=== PATIENT | male | born 1930 | race Caucasian/White ===

== ENCOUNTER → 2017-08-31 | Day surgery (SDC) | payer MEDICARE, MEDICAID ==
[~2017-08-31] VITALS: Ht 157.5 cm; Wt 62.6 kg
[2017-08-31] VITALS (11 sets, daily range): BP systolic 149–170; BP diastolic 73–97
[~2017-08-31] MED LIST: CARV12.545 PO; FENTANYL CITRATE/PF 50MCG/ML 2ML VIAL IV ONE; FENTANYL CITRATE/PF 50MCG/ML 2ML VIAL ONE; LIDOCAINE HCL/PF 1% 10 MG/ML 30ML VIAL ONE; LISI-604 PO; LOSA100T14 PO; MEMA7CAP PO; METF500T6 PO; SODIUM BICARBONATE 4% (2.4MEQ) 5ML VIAL IV ONE
== END | disposition home or self-care (01) ==
LOC: RAD 09:15
PROVIDERS: ATTEND Internal Medicine
DX: C34.92 Malignant neoplasm of unspecified part of left bronchus or lung (principal); I10 Essential (primary) hypertension; E11.9 Type 2 diabetes mellitus without complications; E78.00 Pure hypercholesterolemia, unspecified; R63.4 Abnormal weight loss; I42.9 Cardiomyopathy, unspecified; Z95.0 Presence of cardiac pacemaker; Z79.899 Other long term (current) drug therapy
CPT/HCPCS: 32405; 71045; 77012; 82962; 88304; 88305; J3010; J3490; 99152; 99153; J7050

== ENCOUNTER 2018-08-23 11:36 | Inpatient (IN) | payer MEDICARE, MEDICAID ==
[~2018-08-23] VITALS: Ht 170.2 cm; Wt 66.7 kg
[~2018-08-23 11:36] MED LIST changes: -CARV12.545 PO; -FENTANYL CITRATE/PF 50MCG/ML 2ML VIAL IV ONE; -FENTANYL CITRATE/PF 50MCG/ML 2ML VIAL ONE; -LIDOCAINE HCL/PF 1% 10 MG/ML 30ML VIAL ONE; -LISI-604 PO; -LOSA100T14 PO; -MEMA7CAP PO; +METF-414 PO; -METF500T6 PO; +RIVA20TA MT; -SODIUM BICARBONATE 4% (2.4MEQ) 5ML VIAL IV ONE
[2018-08-23] MEDS ORDERED: SODIUM CHLORIDE 0.9% 1000ML BAG (SEPSIS BOLUS) IV ONE (12:45)
[2018-08-23] MEDS ORDERED: PIPERACILLIN/TAZ 3.375G PREMIX 50 ML IV ONE (12:45)
[2018-08-23] MEDS ORDERED: VANCOMYCIN 1 G PREMIX 200 ML IV ONE (12:45)
[2018-08-23 13:04] LABS: BASOPHILS % 0.2 % (0.0-2.0); EOSINOPHILS % 1.2 % (0.0-5.0); HEMATOCRIT. 28.2 % (42.0-52.0); HEMOGLOBIN. 9.6 g/dL (14.0-18.0); LYMPHOCYTES % 22.3 % (20.0-50.0); MEAN CORPUSCULAR HEMOGLOBIN 28.4 pg (28.0-32.0); MEAN CORPUSCULAR VOLUME 83.6 fL (80.0-94.0); MEAN PLATELET VOLUME 6.9 fl (7.4-10.4); NEUTROPHILS % 67.3 % (40.0-76.0); PLATELET 323 x1000/uL (130-400); RED BLOOD CELL COUNT 3.38 mill/uL (4.7-6.1); RED CELL DISTRIBUTION WIDTH 15.3 % (11.6-14.6)
[2018-08-23 13:10] LABS: CHLORIDE 103 mEq/L (98-107); INR 1.2; PROTHROMBIN TIME 12.6 sec (9.6-11.0)
[2018-08-23 14:45] LABS: CLARITY URINE CLEAR (CLEAR); COLOR URINE YELLOW (YELLOW); KETONES URINE NEGATIVE (NEGATIVE); LEUKOCYTE ESTERASE URINE NEGATIVE (NEGATIVE); NITRITE URINE NEGATIVE (NEGATIVE); OCCULT BLOOD URINE NEGATIVE (NEGATIVE); PROTEIN URINE NEGATIVE (NEGATIVE); UROBILINOGEN URINE 0.2 E.U./dL (0.2-1.0)
[2018-08-23] MEDS ORDERED: HYDROCODONE/ACETAMINOPHEN 5/325MG TABLET PO PRN (16:00)
[2018-08-23] MEDS ORDERED: IPRATROPIUM/ALBUTEROL 0.5-3(2.5)MG/3ML NEB INH PRN (16:00)
[2018-08-23] MEDS ORDERED: ONDANSETRON HCL 4MG/2ML INJ IV PRN (16:00)
[2018-08-23] MEDS ORDERED: ACETAMINOPHEN 325MG TABLET PO PRN (16:00)
[2018-08-23] MEDS ORDERED: CLONIDINE 0.1MG TABLET PO PRN (16:00)
[2018-08-23 23:32] VITALS: BP 158/74
[2018-08-24] VITALS: BP 158/74
[2018-08-24] MEDS: SODIUM CHLORIDE 0.45% 1,000 ML IV SCH ×2 (02:29→23:09)
[2018-08-24] MEDS ORDERED: DEXTROSE 50% WATER 50ML SYRINGE IV PRN (03:15)
[2018-08-24 04:00] VITALS: BP 132/71
[2018-08-24] MEDS: BLOOD SUGAR DIAGNOSTIC STRIP TEST SCH ×3 (06:20→21:00)
[2018-08-24 06:22] LABS: CHLORIDE 105 mEq/L (98-107)
[2018-08-24 06:27] LABS: BASOPHILS % 0.3 % (0.0-2.0); EOSINOPHILS % 2.2 % (0.0-5.0); HEMATOCRIT. 28.6 % (42.0-52.0); HEMOGLOBIN. 9.8 g/dL (14.0-18.0); LYMPHOCYTES % 23.9 % (20.0-50.0); MEAN CORPUSCULAR HEMOGLOBIN 28.4 pg (28.0-32.0); MEAN CORPUSCULAR VOLUME 82.8 fL (80.0-94.0); MEAN PLATELET VOLUME 7.2 fl (7.4-10.4); MONOCYTES % 8.8 % (2.0-8.0); NEUTROPHILS % 64.8 % (40.0-76.0); PLATELET 302 x1000/uL (130-400); RED BLOOD CELL COUNT 3.45 mill/uL (4.7-6.1); RED CELL DISTRIBUTION WIDTH 15.4 % (11.6-14.6)
[2018-08-24 06:35] LABS: LDL CHOLESTEROL 60 mg/dL (5-100)
[2018-08-24 06:37] LABS: HDL CHOLESTEROL 47 mg/dL (40-59); T4 FREE 1.14 ng/dL (0.76-1.46)
[2018-08-24] MEDS: INSULIN LISPRO 100 UNITS/ML SUBCUT SCH ×2 (07:40→21:00)
[2018-08-24 08:00] VITALS: BP 107/68
[2018-08-24] MEDS: ENOXAPARIN 40MG/0.4ML SYR SUBCUT SCH (09:37)
[2018-08-24 12:00] VITALS: BP 115/57
[2018-08-24] MEDS ORDERED: IOHEXOL-300 100 ML BOTTLE ONE (14:11)
[2018-08-24 16:00] VITALS: BP 117/56
[2018-08-24 20:00] VITALS: BP 106/57
[2018-08-25] VITALS: BP 144/65
[2018-08-25 04:00] VITALS: BP 118/70
[2018-08-25 05:59] LABS: CHLORIDE 102 mEq/L (98-107)
[2018-08-25 06:29] LABS: HEMATOCRIT 28.1 % (42.0-52.0); HEMOGLOBIN 9.7 g/dL (14.0-18.0); MEAN CORPUSCULAR HEMOGLOBIN 28.4 pg (28.0-32.0); MEAN CORPUSCULAR VOLUME 82.4 fL (80.0-94.0); PLATELET 317 x1000/uL (130-400); RED BLOOD CELL COUNT 3.41 mill/uL (4.7-6.1); RED CELL DISTRIBUTION WIDTH 15.5 % (11.6-14.6)
[2018-08-25] MEDS: BLOOD SUGAR DIAGNOSTIC STRIP TEST SCH ×4 (06:45→21:24)
[2018-08-25] MEDS: INSULIN LISPRO 100 UNITS/ML SUBCUT SCH ×3 (06:47→21:00)
[2018-08-25 08:00] VITALS: BP 110/62
[2018-08-25 12:00] VITALS: BP 129/70
[2018-08-25] MEDS: ENOXAPARIN 40MG/0.4ML SYR SUBCUT SCH (12:24)
[2018-08-25 16:00] VITALS: BP 135/54
[2018-08-25] MEDS: SODIUM CHLORIDE 0.45% 1,000 ML IV SCH (17:15)
[2018-08-25 20:00] VITALS: BP 108/66
[2018-08-26] VITALS: BP 146/59
[2018-08-26] MEDS: SODIUM CHLORIDE 0.45% 1,000 ML IV SCH (03:06)
[2018-08-26 04:00] VITALS: BP 144/70
[2018-08-26] MEDS: INSULIN LISPRO 100 UNITS/ML SUBCUT SCH ×3 (07:40→16:33)
[2018-08-26] MEDS: BLOOD SUGAR DIAGNOSTIC STRIP TEST SCH ×3 (07:42→16:33)
[2018-08-26 07:49] LABS: HEMATOCRIT 27.4 % (42.0-52.0); HEMOGLOBIN 9.4 g/dL (14.0-18.0); MEAN CORPUSCULAR HEMOGLOBIN 28.3 pg (28.0-32.0); MEAN CORPUSCULAR VOLUME 82.5 fL (80.0-94.0); PLATELET 315 x1000/uL (130-400); RED BLOOD CELL COUNT 3.33 mill/uL (4.7-6.1); RED CELL DISTRIBUTION WIDTH 15.4 % (11.6-14.6)
[2018-08-26 07:59] LABS: CHLORIDE 104 mEq/L (98-107)
[2018-08-26] MEDS: ENOXAPARIN 40MG/0.4ML SYR SUBCUT SCH (08:21)
[2018-08-26 12:04] VITALS: BP 121/60
[2018-08-26 16:00] VITALS: BP 119/65
[2018-08-26 17:50] VITALS: BP 119/65
== END 2018-08-26 19:00 | disposition home or self-care (01) | DRG 871 ==
LOC: ER 11:36 → 8WST 14:46 → EDBEDREQTM 14:48 → EDBEDREQ 14:48 → EDBEDREQSVC 14:48 → CANRESERV 20:51 → ENRESERV 20:51
PROVIDERS: ADMIT Internal Medicine; ATTEND Internal Medicine
DX: A41.9 Sepsis, unspecified organism (principal); E43 Unspecified severe protein-calorie malnutrition; C34.90 Malignant neoplasm of unspecified part of unspecified bronchus or lung; C79.89 Secondary malignant neoplasm of other specified sites; I42.9 Cardiomyopathy, unspecified; D68.59 Other primary thrombophilia; R65.20 Severe sepsis without septic shock; R53.1 Weakness; F03.90 Unspecified dementia, unspecified severity, without behavioral disturbance, psychotic disturbance, mood disturbance, and anxiety; I10 Essential (primary) hypertension; R22.1 Localized swelling, mass and lump, neck; D50.9 Iron deficiency anemia, unspecified; M48.02 Spinal stenosis, cervical region; E11.9 Type 2 diabetes mellitus without complications; I48.91 Unspecified atrial fibrillation; R13.10 Dysphagia, unspecified; R62.7 Adult failure to thrive; Z68.23 Body mass index [BMI] 23.0-23.9, adult; Z95.0 Presence of cardiac pacemaker
CPT/HCPCS: 36415; 70460; 71045; 71250; 74176; 80048; 80061; 82962; 83605; 83880; 84145; 84439; 84443; 84481; 84484; 85027; 93005; 93970; 96365; 97162; 99291; J1650; J2543; J3370; J7030; Q9967

== ENCOUNTER 2018-09-01 10:04 | Emergency (ER) | payer MEDICARE, MEDICAID ==
[~2018-09-01] VITALS: Ht 154.9 cm; Wt 71.0 kg
[2018-09-01 11:13] LABS: BASOPHILS % 0.7 % (0.0-2.0); EOSINOPHILS % 1.7 % (0.0-5.0); HEMATOCRIT. 31.9 % (42.0-52.0); HEMOGLOBIN. 10.6 g/dL (14.0-18.0); LYMPHOCYTES % 18.3 % (20.0-50.0); MEAN CORPUSCULAR HEMOGLOBIN 28.1 pg (28.0-32.0); MEAN CORPUSCULAR VOLUME 84.2 fL (80.0-94.0); MEAN PLATELET VOLUME 7.5 fl (7.4-10.4); MONOCYTES % 8.1 % (2.0-8.0); NEUTROPHILS % 71.2 % (40.0-76.0); PLATELET 291 x1000/uL (130-400); RED BLOOD CELL COUNT 3.79 mill/uL (4.7-6.1); RED CELL DISTRIBUTION WIDTH 16.9 % (11.6-14.6)
[2018-09-01 11:19] LABS: CHLORIDE 103 mEq/L (98-107)
[2018-09-01 11:44] LABS: INR 1.2; PROTHROMBIN TIME 12.4 sec (9.6-11.0)
[2018-09-01 11:58] VITALS: BP 100/55
== END 2018-09-01 12:31 | disposition home or self-care (01) ==
LOC: ER 10:04 → SUPCPDRO 11:38 → CANBEDREQ 11:48 → EDBEDREQTM 11:48 → EDBEDREQ 11:48 → CANBEDREQ 11:55 → ER 12:31
DX: J90 Pleural effusion, not elsewhere classified (principal); D64.9 Anemia, unspecified; E11.9 Type 2 diabetes mellitus without complications; I10 Essential (primary) hypertension; Z95.0 Presence of cardiac pacemaker; Z98.890 Other specified postprocedural states; I25.10 Atherosclerotic heart disease of native coronary artery without angina pectoris
CPT/HCPCS: 36415; 71045; 83880; 86850; 86870; 86900; 93005; 99284

== ENCOUNTER → 2018-09-08 | Outpatient (CLI) | payer MEDICARE, MEDICAID ==
[~2018-09-08] MED LIST changes: +SODIUM BICARBONATE 4% (2.4MEQ) 5ML VIAL IV ONE
== END | disposition home or self-care (01) ==
LOC: RAD 09:25
PROVIDERS: ATTEND Internal Medicine
DX: J90 Pleural effusion, not elsewhere classified (principal); Z79.84 Long term (current) use of oral hypoglycemic drugs; Z79.899 Other long term (current) drug therapy; Z83.3 Family history of diabetes mellitus
CPT/HCPCS: 32555; 71045; J3490